=== PATIENT | male | born 1965 | race African-American/Black ===

== ENCOUNTER 2025-07-31 20:00 | Emergency (ER) | payer SELFPAY ==
[~2025-07-31] VITALS: Ht 177.8 cm; Wt 104.5 kg
[2025-07-31] MEDS ORDERED: AMLO-258 PO (20:19)
[2025-07-31] MEDS ORDERED: METO50 PO (20:19)
[2025-07-31 20:21] VITALS: TEMP 97.5
[2025-07-31 20:55] LABS: PLATELET COUNT (AUTO) 218 K/uL (150-450); RED BLOOD CELL COUNT(AUTO) 4.77 MIL/uL (4.50-5.90); RED CELL DISTRIBUTION WIDTH 19.8 % (11.5-14.5); WHITE BLOOD COUNT (AUTO) 4.7 K/uL (4.5-11.0)
[2025-07-31 20:57] LABS: CALCIUM, TOTAL 8.0 mg/dL (8.8-10.5); CREATININE 0.90 mg/dL (0.60-1.30); GLOMERULAR FILTR. RATE CALC > 60 mL/min (>60); GLUCOSE,RANDOM 139 mg/dL (70-110); SODIUM SERUM 138 mmol/L (136-145); UREA NITROGEN, BLOOD 9 mg/dL (7-18)
[2025-07-31 21:06] LABS: TROPONIN I-HIGH SENSITIVITY 7 ng/L (<76)
[2025-07-31] MEDS: POTASSIUM CHLORIDE 20 MEQ ER TABLET PO ONE ×2 (21:48→22:57)
[2025-07-31] MEDS ORDERED: POTA-92 PO (22:56)
[2025-07-31 23:25] VITALS: BP 122/78; PULSE 88; RESP 16; O2SAT 95
== END 2025-08-01 | disposition home or self-care (01) ==
LOC: EMS 20:00
DX: I11.9 Hypertensive heart disease without heart failure (principal); E87.6 Hypokalemia; Z79.899 Other long term (current) drug therapy
CPT/HCPCS: 80048; 84484; 85025; 93005; 99284